=== PATIENT | male | born 1950 | race Caucasian/White ===

== ENCOUNTER → 2016-10-15 | Outpatient (CLI) | payer BC | END | disposition home or self-care (01) | LOC: PCVCIMAG 08:08 | PROVIDERS: ATTEND Internal Medicine Cardiovascular Disease | DX: I10 Essential (primary) hypertension (principal); E78.00 Pure hypercholesterolemia, unspecified; R06.00 Dyspnea, unspecified; Z72.0 Tobacco use | CPT/HCPCS: 78452; 93017; 93306; A9500 ==

== ENCOUNTER → 2018-02-17 | Outpatient (CLI) | payer MEDICARE | END | disposition home or self-care (01) | LOC: PCVCCLINIC 11:31 | DX: I10 Essential (primary) hypertension (principal); E78.00 Pure hypercholesterolemia, unspecified; R06.00 Dyspnea, unspecified; F17.210 Nicotine dependence, cigarettes, uncomplicated; Z79.899 Other long term (current) drug therapy; Z79.82 Long term (current) use of aspirin | CPT/HCPCS: 93005; G0463 ==

== ENCOUNTER → 2019-01-08 | Outpatient (CLI) | payer MEDICARE ==
--- NOTE | 2019-01-08 13:50 | PCVCIMAG ---
APPROVED REPORT Study performed: 01/08/2019 13:02:13 EXAM: Comprehensive 2D, Doppler, and color-flow Echocardiogram Patient Location: Echo lab Room #: 3Status: routine BSA: 1.97 HR: 87 bpmBP: 110/60 mmHg Rhythm: NSR Other Information Study Quality: Adequate Risk Factors: Cardiac Risk Factors: HTN, Smoking Indications Dyspnea 2D Dimensions IVSd: 11.17 (7-11mm)LVOT Diam: 22.00 (18-24mm) LVDd: 41.30 mm PWd: 11.81 (7-11mm)Ascending Ao: 35.15 (22-36mm) LVDs: 25.87 (25-40mm) Left Atrium: 33.72 (27-40mm) Aortic Root: 33.25 mm LV Single Plane 4CH: 64.46 % LV Single Plane 2CH: 60.78 % Biplane EF: 62.3 % Volumes Left Atrial Volume (Systole) Single Plane 4CH: 39.04 mLSingle Plane 2CH: 43.39 mL LA ESV Index: 23.00 mL/m2 Aortic Valve AoV Peak Brady.: 2.33 m/s AO Peak Gr.: 15.97 mmHgLVOT Max P.50 mmHg AO Mean Gr.: 11.29 mmHgLVOT Mean P.72 mmHg AO V2 Mean: 1.59 m/sLVOT Max V: 0.97 m/s AO V2 VTI: 33.06 cmLVOT Mean V: 0.81 m/s HAY (VTI): 2.31 [id number] V1 VTI: 20.99 cm HAY Vmax: 1.52 cm2 SV (LVOT): 76.34 mL Mitral Valve E/A Ratio: 0.6 MV Decel. Time: 206.18 ms MV E Max Brady.: 0.52 m/s MV A Brady.: 0.87 m/s IVRT: 72.66 ms TDI E/Lateral E': 6.50E/Medial E': 8.67 Medial E' Brady.: 0.06 m/s Lateral E' Brady.: 0.08 m/s Pulmonary Valve PV Peak Brady.: 1.09 m/sPV Peak Gr.: 4.77 mmHg Pulmonary Vein P Vein S: 0.70 m/sP Vein A: 0.45 m/s P Vein D: 0.40 m/sP Vein A Dur.: 96.9 msec P Vein S/D Ratio: 1.75 Tricuspid Valve TR Peak Brady.: 2.47 m/sRAP Estimate: 7.00 mmHg TR Peak Gr.: 24.40 mmHg PA Pressure: 31.00 mmHg Left Ventricle The left ventricle is normal size. There is normal LV segmental wall motion. Borderline concentric left ventricular hypertrophy. Left ventricular systolic function is normal. The left ventricular ejection fraction is within the normal range. LVEF is 60-65%. Mild diastolic dysfunction is present (impaired relaxation pattern). Right Ventricle The right ventricle is normal size. The right ventricular systolic function is normal. Atria The left atrium size is normal. The right atrium size is normal. Aortic Valve The Aortic valve is sclerotic. Mild aortic regurgitation. There is no aortic valvular stenosis. Mitral Valve There is mitral annular calcification. There is no mitral valve regurgitation noted. No evidence of mitral valve stenosis. Tricuspid Valve The tricuspid valve is normal in structure. Trace tricuspid regurgitation. Pulmonary artery pressure is 31 mmHg. Pulmonic Valve The pulmonary valve is normal in structure. There is no pulmonic valvular regurgitation. Great Vessels The aortic root is normal in size. IVC is normal in size and collapses >50% with inspiration. Pericardium There is no pericardial effusion. <Conclusion> The left ventricle is normal size. Borderline concentric left ventricular hypertrophy. Left ventricular systolic function is normal. Mild diastolic dysfunction is present (impaired relaxation pattern). The right ventricle is normal size. The left atrium size is normal. The Aortic valve is sclerotic. Mild aortic regurgitation. There is mitral annular calcification. There is no mitral valve regurgitation noted. Trace tricuspid regurgitation. Pulmonary artery pressure is 31 mmHg.
== END | disposition home or self-care (01) ==
LOC: PCVCIMAG 12:51
PROVIDERS: ATTEND Internal Medicine Cardiovascular Disease
DX: I08.2 Rheumatic disorders of both aortic and tricuspid valves (principal); E78.00 Pure hypercholesterolemia, unspecified; I11.0 Hypertensive heart disease with heart failure; E78.5 Hyperlipidemia, unspecified; F17.200 Nicotine dependence, unspecified, uncomplicated; Z88.2 Allergy status to sulfonamides; Z79.899 Other long term (current) drug therapy
CPT/HCPCS: 93005; 93306; G0463